=== PATIENT | female | born 1950 | race Caucasian/White ===

== ENCOUNTER 2018-11-11 09:43 | Inpatient (IN) ==
[2018-11-10 18:30] LABS: Basophils # (Auto) 0 K/mcL (0.0-0.3); Basophils % (Auto) 0.3 % (0.0-2.0); Eosinophils # (Auto) 0.1 K/mcL (0.0-0.7); Eosinophils % (Auto) 1.4 % (0.0-7.0); Granulocytes % (Auto) 78.7 % (38.0-78.0); Lymphocytes # (Auto) 1.2 K/mcL (1.5-4.8); Lymphocytes % (Auto) 13.4 % (15.5-49.0); Mean Cell Volume 90.6 fL (80.0-100.0); Mean Corpuscular HGB Conc 34.3 g/dL (31.0-36.0); Monocytes # (Auto) 0.5 K/mcL (0.1-0.9); Monocytes % (Auto) 6.2 % (1.0-12.0); Platelet Count 355 K/mcL (140-440); RBC 4.14 M/mcL (4.00-5.20); Red Cell Distribution Width 12.7 % (11.5-14.5)
[2018-11-10 19:21] LABS: Blood Urea Nitrogen 14 mg/dl (8-23)
[~2018-11-11 09:43] MED LIST: ceFAZolin 1 GM VIAL IV SCH
[2018-11-11] MEDS ORDERED: oxyCODONE/APAP 10/325MG TABLET PO ONE (10:26)
[2018-11-11] MEDS ORDERED: LIDOCAINE HCL/PF 100 MG/5 ML SYRINGE IV ONE (14:35)
[2018-11-11] MEDS ORDERED: ONDANSETRON 4 MG/2 ML VIAL IV ONE (14:35)
[2018-11-11] MEDS ORDERED: PROPOFOL 200 MG/20 ML VIAL IV ONE (14:35)
[2018-11-11] MEDS ORDERED: fentaNYL 100 MCG/2 ML VIAL IV ONE (14:35)
[2018-11-11] MEDS ORDERED: GLYCOPYRROLATE 0.2 MG/ML VIAL IV ONE (14:35)
[2018-11-11] MEDS ORDERED: MIDAZOLAM 5 MG/5 ML VIAL IV ONE (14:35)
[2018-11-11] MEDS ORDERED: KETOROLAC 30 MG/ML VIAL IV ONE (14:35)
[2018-11-11] MEDS ORDERED: KETAMINE 100 MG/ML ML IV ONE (14:35)
[2018-11-11] MEDS ORDERED: DEXAMETHASONE 10 MG/ML VIAL IV ONE (14:35)
[2018-11-11] MEDS ORDERED: BENZOCAINE/MENTHOL 1 LOZENGE PO PRN (15:22)
[2018-11-11] MEDS ORDERED: METHOCARBAMOL 1,000 MG/10 ML VIAL IV PRN (15:22)
[2018-11-11] MEDS ORDERED: ACETAMINOPHEN 900 MG/90 ML BOTTLE IV ONE (15:22)
[2018-11-11] MEDS ORDERED: LACTATED RINGERS 250 ML IV PRN (15:22)
[2018-11-11] MEDS ORDERED: IPRATROPIUM/ALBUTEROL 3 ML AMPUL.NEB NEB PRN (15:22)
[2018-11-11] MEDS ORDERED: MEPERIDINE 25 MG/ML SYRINGE IV PRN (15:22)
[2018-11-11] MEDS ORDERED: ONDANSETRON 4 MG/2 ML VIAL IV PRN (15:22)
[2018-11-11] MEDS ORDERED: NALOXONE HCL 0.4 MG/ML VIAL IV PRN (15:22)
[2018-11-11] MEDS ORDERED: FLUMAZENIL 0.1 MG/ML ML IV PRN (15:22)
[2018-11-11] MEDS ORDERED: HYDROmorphone 2 MG/ML VIAL IV PRN (15:22)
[2018-11-11] MEDS ORDERED: LACTATED RINGERS 1,000 ML IV SCH (15:30)
[2018-11-11] MEDS ORDERED: ONDANSETRON 4 MG ODT TABLET SL PRN (16:06)
--- NOTE | 2018-11-11 16:12 | Discharge Summary ---
Ortho Discharge Plan - General - Patient Instructions Diet: Regular Diet Activity: other (Non weightbearing left ankle adjust brace for comfort but keep on) Dressing Care: Cover dressing in shower (keep ankle dry) - Follow Up Plan Follow Up Appointments: Bro Castellanos PA-C [Physician [employer] Programmer] - 11/17/18 Disposition: Home, Self-Care Prognosis: Good Rehab Potential: Good I certify that the patient requires SNF services: No Overall status at discharge: patient is not back to baseline
[2018-11-11] MEDS: fentaNYL 100 MCG/2 ML VIAL IV PRN ×2 (17:02→17:06)
--- NOTE | 2018-11-11 17:50 | XRay Report ---
HISTORY: Postop repair fractured ankle FINDINGS: Preoperative films are not available for comparison. There is a transverse fracture of the medial malleolus and oblique fracture the distal metaphyseal region of the fibula. These are held in good alignment using metal plate and screws in the fibula and two screws placed through the medial malleolus into the shaft of the tibia. The ankle joint space is normal in width and alignment. Overlying soft tissues are swollen. IMPRESSION: good alignment following open reduction internal fixation of the fractured medial and lateral malleoli Interpreted and Authenticated by: Sandeep Lopez 11/11/18
[2018-11-11] MEDS: oxyCODONE/APAP 5/325MG TABLET PO PRN ×2 (18:16→22:27)
--- NOTE | 2018-11-11 20:58 | Internal Med History&Physical ---
Medical - H&P: HPI Patient information: Note initiated : 11/11/18 at 8:52 pm Service Date, if different from initiated Date: [] Patient: Pari Reyes a 68 y/o F admitted on for Open Reduction Internal Fixation Left Trimalleolar. Chief Complaint: [] History of present illness: Ms. Reyes is a 68 year old F Who is now status post ORIF of the left ankle and was noted to be hypoxic postoperatively. She fell down some steps on [place] after having a few drinks of alcohol. She had immediate pain to the right ankle. When in the ER found to have an ankle fracture. She was sent home to follow-up with Dr. Britton. She followed up in his office and was set up for elective surgical repair. Presented to the hospital this morning had surgery this afternoon. She was not on any oxygen before hand had no chest pain or shortness of breath or any symptoms. Postoperatively she required oxygen 6 L initially and titrated down to 2-3. She says she has never been on oxygen in the past has no cardiac or pulmonary conditions. Denies any fevers chills. No coughing no recent sicknesses. She is not tachycardic however she is on beta-blockers. ABG with PaO2 of 58 and within normal limits CO2. Intraoperatively she received 2 units of IV fluids. She typically does not have any lower extremity edema. She has been sedentary since the fracture a few days ago on the . Her blood pressure is stable. Review of Systems: Pertinent positives as above . denies headache/fever/chills/nausea/vomiting/ chest or abdominal pain/cough/dyspnea/diarrhea. Remaining 10 point review of system review negative Medical - H&P: PMH Medical history: Past medical history: Hypertension hyperlipidemia hypothyroidism depression Past surgical history: Left shoulder arthroscopy T&A hysterectomy breast and face surgery Family history: Unknown mother's history father had Hodgkin's lymphoma and myocardial infarction Social history patient does not smoke she drinks 20 ounces of wine nightly lives at home with Medical - H&P: Meds Home Medications Medication Instructions Recorded Confirmed Type Atenolol [Tenormin] 25 mg PO DAILY 11/10/18 11/11/18 History Escitalopram [Lexapro] 10 mg PO DAILY 11/10/18 11/11/18 History Levothyroxine [Synthroid] 75 mcg PO DAILY 11/10/18 11/11/18 History Losartan/Hydrochlorothiazide 1 each PO DAILY 11/10/18 11/11/18 History [Losartan-Hctz 100-12.5 mg Tab] Pramipexole Di-HCl [Pramipexole 0.5 mg PO HS 11/10/18 11/11/18 History Dihydrochloride] Pravastatin [Pravachol] 20 mg PO HS 11/10/18 11/11/18 History Allergies Allergy/AdvReac Type Severity Reaction Status Date / Time codeine AdvReac Mild Vomiting Verified 11/11/18 09:48 Medical - H&P: Exam - Constitutional Vitals: Temp Pulse Resp BP Pulse Ox 98.0 F 70 12 138/80 92 11/11/18 20:37 11/11/18 20:37 11/11/18 20:37 11/11/18 20:37 11/11/18 20:37 Exam: General: Alert, Awake, No acute Distress Eyes/N/T: EOMI, PEERL, MMM Head/Neck: neck supple, normocephalic atraumatic CV: RRR, No murmurs, normal s1/s2 Pulm: Coarse bilaterally upper and lower, and by basilar rhonchi. Abd: soft, nontender, +BS x4 Ext: no clubbing/cyanosis/edema Neuro: Alert, no focal deficits, moves all extremities, CN 2-12 grossly intact, left ankle and boot Skin: warm/dry Medical - H&P: Reslt - Labs CBC & Chem 7: 11/10/18 16:26 11/10/18 16:26 - Impressions ABG with a PO2 of 58 EKG unremarkable and sinus. Chest x-ray with appears to be some fluid in the horizontal fissure and some haziness in the right upper lobe. Pulmonary vascular congestion Medical - H&P: A/P - Narrative A/P Narrative: A: *Hypoxia postop: -CTA with PE KELLY/RLL & multifocal alveolar infiltrates *Hyponatremia: *Hypertension *Hypothyroidism *Depression: * P: -lovenox bid -O2 supp, wean as able -CIWA -IS -tele -f/u sodium -check PCT
[2018-11-11] MEDS ORDERED: PRAMIPEXOLE 0.25 MG TABLET PO SCH (21:00)
[2018-11-11] MEDS ORDERED: LORazepam 2 MG/ML VIAL IV PRN (21:11)
[2018-11-11] MEDS ORDERED: 0.9 % SODIUM CHLORIDE 10 ML SYRINGE IV SCH ×2 (22:00)
[2018-11-11] MEDS: ENOXAPARIN 60 MG/0.6 ML SYRINGE SQ SCH ×2 (22:49→23:32)
[2018-11-11] MEDS ORDERED: ENOXAPARIN 60 MG/0.6 ML SYRINGE ONE (23:22)
[2018-11-11 23:44] LABS: C-Reactive Protein 5.2 mg/dl (0.0-0.8)
[2018-11-12] MEDS ORDERED: HYDROmorphone 2 MG/ML VIAL IV PRN ×2 (00:10→11:33)
[2018-11-12] MEDS ORDERED: LORazepam 2 MG/ML VIAL IV PRN ×3 (00:10→11:33)
[2018-11-12] MEDS ORDERED: oxyCODONE/APAP 5/325MG TABLET PO PRN (00:10)
[2018-11-12] MEDS ORDERED: ONDANSETRON 4 MG ODT TABLET SL PRN ×2 (00:10→11:33)
[2018-11-12] MEDS ORDERED: HYDROmorphone 2 MG/ML VIAL ONE (03:53)
[2018-11-12] MEDS ORDERED: oxyCODONE/APAP 5/325MG TABLET PO ONE (03:54)
[2018-11-12 05:48] LABS: Mean Cell Volume 90.3 fL (80.0-100.0); Mean Corpuscular HGB Conc 34.5 g/dL (31.0-36.0); Platelet Count 302 K/mcL (140-440); RBC 3.63 M/mcL (4.00-5.20); Red Cell Distribution Width 12.7 % (11.5-14.5)
[2018-11-12] MEDS ORDERED: 0.9 % SODIUM CHLORIDE 10 ML SYRINGE IV SCH ×2 (06:00)
[2018-11-12 06:04] LABS: ALT/SGPT 13 U/l (0-40); Albumin 3.2 gm/dL (3.2-5.2); Albumin/Globulin Ratio 1.3 (1.0-2.3); Alkaline Phosphatase 62 U/L (39-117); Bilirubin,Direct < 0.2 mg/dL (0.0-0.3); Blood Urea Nitrogen 10 mg/dl (8-23); Gamma Glutamyl Transpeptidase 30 U/L (5-36); Uric Acid 1.9 mg/dL (2.5-8.0)
[2018-11-12] MEDS ORDERED: FUROSEMIDE 40 MG/4 ML VIAL IV ONE (06:19)
--- NOTE | 2018-11-12 06:23 | Internal Med Progress Note ---
Medical - PN: Subj Patient information: Note initiated : 11/12/18 at 6:14 am Service Date, if different from initiated Date: [] Patient: Pari Reyes a 68 y/o F admitted on 11/11/18 for Open Reduction Internal Fixation Left Trimalleolar. Chief Complaint: [] Interval history: Ms. Reyes is a 68 year old F Who is now status post ORIF of the left ankle and was noted to be hypoxic postoperatively. She fell down some steps on [place] after having a few drinks of alcohol. She had immediate pain to the right ankle. When in the ER found to have an ankle fracture. She was sent home to follow-up with Dr. Britton. She followed up in his office and was set up for elective surgical repair. Presented to the hospital this morning had surgery this afternoon. She was not on any oxygen before hand had no chest pain or shortness of breath or any symptoms. Postoperatively she required oxygen 6 L initially and titrated down to 2-3. She says she has never been on oxygen in the past has no cardiac or pulmonary conditions. Denies any fevers chills. No coughing no recent sicknesses. She is not tachycardic however she is on beta-blockers. ABG with PaO2 of 58 and within normal limits CO2. Intraoperatively she received 2 units of IV fluids. She typically does not have any lower extremity edema. She has been sedentary since the fracture a few days ago on the . Her blood pressure is stable. 1/4 Doing fine this morning. She was just taken off oxygen given some Lasix earlier in put out 950 cc of fluid. Eyes any cough or shortness of breath. vital signs stable Review of Systems: denies headache/fever/chills/nausea/vomiting/chest or abdominal pain/cough/dyspnea/diarrhea. Otherwise see above.. - Constitutional Vitals: Vital Signs Temp Pulse Resp BP Pulse Ox 97.9 F 58 L 13 106/64 93 11/11/18 23:36 11/12/18 00:38 11/12/18 02:01 11/12/18 02:01 11/12/18 02:01 Period Temp Pulse Resp BP Sys/Handy Pulse Ox Last 24 Hr 97.5 F-99.2 F 58-99 08-27 106-176/64-98 90-96 Intake and Output 11/11/18 11/12/18 11/12/18 21:59 05:59 13:59 Intake Total 1380 / 1380 Output Total Balance 1360 / 1360 Weight 62.142 kg Intake & Output: Intake & Output 11/11/18 11/12/18 11/12/18 21:59 05:59 13:59 Intake Total 1380 / 1380 Output Total Balance 1360 / 1360 Weight 62.142 kg Intake: IV 90 / 90 Oral 40 / 40 IV - Manual Only 1250 / 1250 Output: Estimated Blood Loss Other: Meal wheat toast Feeding Ability Independent Exam: General: Alert, Awake, No acute Distress Eyes/N/T: EOMI, Head/Neck: neck supple, CV: RRR, No murmurs, Pulm: clear this morning, laterally, no wheezing/rhonchi Abd: soft, nontender, +BS x4 Ext: no clubbing/cyanosis/edema Neuro: Alert, no focal deficits, moves all extremities, Skin: warm/dry Medical - PN: Obj Da - Labs CBC & Chem 7: 11/10/18 16:26 11/12/18 03:50 Labs: Abnormal Lab Results 11/12/18 11/12/18 11/11/18 03:50 03:50 22:30 WBC 11.7 H RBC 3.63 L Hgb 11.3 L Hct 32.8 L MPV 7.0 L Gran % Lymph % (Auto) Lymph # (Auto) Sodium 127 L Chloride 91 L Glucose 134 H Uric Acid 1.9 L C-Reactive Protein 5.2 H NT-Pro-B Natriuret Pep Total Protein 5.7 L 11/11/18 11/10/18 11/10/18 20:58 16:26 16:26 WBC RBC Hgb Hct MPV Gran % 78.7 H Lymph % (Auto) 13.4 L Lymph # (Auto) 1.2 L Sodium 128 L Chloride 90 L Glucose 163 H Uric Acid C-Reactive Protein NT-Pro-B Natriuret Pep 335.4 H Total Protein Meds: Medications Atenolol (Tenormin) 25 mg PO DAILY [facility] Enoxaparin Sodium (Lovenox) 60 mg SQ BID [facility] Escitalopram Oxalate (Lexapro) 10 mg PO DAILY [facility] Hydrochlorothiazide (Oretic) 12.5 mg PO DAILY [facility] Hydromorphone HCl (Dilaudid) 0.5 mg IV Q15MIN PRN PRN Reason: PAIN LEVEL > 6 Levothyroxine Sodium (Synthroid) 75 mcg PO ACB [facility] Lorazepam (Ativan) 0 mg IV Q4HP PRN; Protocol PRN Reason: Alcohol Withdrawal Losartan Potassium (Cozaar) 100 mg PO DAILY [facility] Morphine Sulfate (Morphine) 0 mg IV Q1HP PRN PRN Reason: PAIN LEVEL > 6 Ondansetron HCl (Zofran Odt) 4 mg SL Q6HP PRN PRN Reason: Nausea And Vomiting Oxycodone/Acetaminophen (Percocet 5-325 Mg) 0 tab PO Q4HP PRN PRN Reason: PAIN LEVEL 3-6 Pramipexole Dihydrochloride (Mirapex) 0.5 mg PO HS [facility] Sodium Chloride (Saline Flush) 10 ml IV Q8 [facility] Last Admin: 11/12/18 05:32 Dose: 10 ml Documented by: Sodium Chloride (Saline Flush) 10 ml IV Q8 [facility] Last Admin: 11/12/18 05:33 Dose: 10 ml Documented by: Medical - PN: A/P - Time Spent With Patient Total time spent is greater than 50% in coordination of care (as documented) at patient's floor/unit and/or counseling patient: - Narrative A/P Narrative: A: *b/l PE: CTA with PE (no heart strain noted on CT), BP stable -CT also multifocal alveolar infiltrates, cxr with fluid in horizontal fissure -on 2L NC, from 6L in PACU *acute hypoxic resp failure: 2/2 above *CT chest findings of multifocal alveolar infiltrates -afebrile, no cough, PCT low -suspect fluid overload intraop *Hyponatremia: *Hypertension *Hypothyroidism: tsh wnl *Depression: * P: -lovenox bid -O2 supp, wean as able -urine studies, lasix, f/u CXR in AM -f/u sodium -echo -CIWA -IS Medical - PN: Qual - VTE Deep Vein Thrombosis/Pulmonary Embolism Present on Admission: Yes
[2018-11-12] MEDS ORDERED: LEVOTHYROXINE 75 MCG TABLET PO SCH ×2 (07:30)
[2018-11-12 08:01] LABS: Osmolality,Urine 357 mOsm/kg (80-1000)
--- NOTE | 2018-11-12 08:24 | XRay Report ---
HISTORY: Hypoxia following orthopedic surgery FINDINGS: A moderate-sized alveolar infiltrate is present in the right upper lobe. The remainder of the lung sweet are clear. The heart size is normal and there is no pulmonary vascular congestion or pleural effusion. IMPRESSION: Right upper lobe infiltrate which could be aspiration or pneumonia Interpreted and Authenticated by: Sandeep Lopez 11/12/18
--- NOTE | 2018-11-12 08:32 | Cat Scan Report ---
CLINICAL INFORMATION: Hypoxia and right-sided pulmonary infiltrate after ankle surgery COMPARISON: Chest x-ray on 11/11/18 TECHNIQUE: Axial images obtained through the chest. intravenous contrast administration was administered, and scanning was performed during pulmonary arterial phase. Sagittally and coronally reformatted images were obtained. MIP reformatted images. Radiation exposure was limited using dose reduction technology. FINDINGS: There are several scattered pulmonary emboli in both lungs. There is involvement in the left upper lobe and superior segment of lingula and right lower lobe. The central pulmonary arteries are normal. There is no dilatation of the right ventricle. The heart is normal in size and contour. The aorta is normal in caliber. There is a moderately large alveolar infiltrate posteriorly in the right upper lobe. There are no pulmonary emboli in this segment. There are also moderate size patchy infiltrates in the superior segments of both lower lobes. The involvement in the lower lobes is new since the preceding chest x-ray. There are no pulmonary emboli in the superior segments of the lower lobes. No mass or pleural effusion are present. There are no enlarged lymph nodes. Small hiatus hernia is present. Patient has bilateral breast implants.1 IMPRESSION: Bilateral pulmonary emboli Bilateral alveolar infiltrates with the greatest involvement in the right upper lobe and there is moderate involvement in the superior segments of both lower lobes. The infiltrates do not correspond with the pulmonary emboli. This may be concurrent aspiration or development of ARDS. Interpreted and Authenticated by: Sandeep Lopez 11/12/18
[2018-11-12 08:36] LABS: Band Neutrophils % 6 % (0-10); Lymphocytes % 13 % (15-49); Monocytes % (Manual) 3 % (1-12); Platelet Estimate NORMAL (NORMAL); RBC Morphology NORMAL (NORMAL); Segmented Neutrophils % 78 % (38-78)
--- NOTE | 2018-11-12 08:48 | Orthopedic Progress Note ---
Subjective Patient information: Note initiated : 11/12/18 at 8:45 am Service Date, if different from initiated Date: [] Patient: Pari Reyes 68 y/o F admitted on 11/11/18 for Open Reduction Internal Fixation Left Trimalleolar. Chief Complaint: [] Principal diagnosis: ankle fracture Interval history: had pulmonary embolism postop Pertinent ROS: no SOB or distress this morning Objective Vital signs: Vital Signs Temp Pulse Pulse Resp BP BP BP 11/12/18 08:34 66 17 11/12/18 08:14 59 L 16 121/74 11/12/18 08:01 57 L 19 107/73 11/12/18 07:01 59 L 17 141/72 11/12/18 06:01 12 109/79 11/12/18 06:00 11/12/18 05:01 16 121/61 11/12/18 04:01 98.2 F 16 131/64 11/12/18 03:01 16 117/63 11/12/18 02:01 13 106/64 11/12/18 01:01 13 112/68 11/12/18 00:38 58 L 17 113/73 11/11/18 23:53 17 113/73 11/11/18 23:52 68 14 11/11/18 23:36 97.9 F 65 12 126/77 11/11/18 21:11 11/11/18 20:37 98.0 F 70 12 138/80 11/11/18 20:06 11/11/18 19:38 98.5 F 75 16 121/64 11/11/18 18:24 98.7 F 79 14 128/66 11/11/18 17:24 98.0 F 89 14 161/88 11/11/18 16:54 97.6 F 87 12 154/74 11/11/18 16:50 97.9 F 78 14 147/94 11/11/18 16:40 85 14 147/81 11/11/18 16:25 88 15 156/66 11/11/18 16:10 91 H 19 169/93 11/11/18 16:05 99 H 18 176/87 11/11/18 16:00 75 13 155/98 11/11/18 15:55 97.5 F 72 10 L 111/69 11/11/18 09:49 99.2 F H 71 15 124/68 Pulse Ox 11/12/18 08:34 91 11/12/18 08:14 97 11/12/18 08:01 90 11/12/18 07:01 99 11/12/18 06:01 94 11/12/18 06:00 94 11/12/18 05:01 95 11/12/18 04:01 98 11/12/18 03:01 97 11/12/18 02:01 93 11/12/18 01:01 90 11/12/18 00:38 91 11/11/18 23:53 91 11/11/18 23:52 92 11/11/18 23:36 95 11/11/18 21:11 95 11/11/18 20:37 92 11/11/18 20:06 94 11/11/18 19:38 93 11/11/18 18:24 94 11/11/18 17:24 96 11/11/18 16:54 95 11/11/18 16:50 94 11/11/18 16:40 92 11/11/18 16:25 93 11/11/18 16:10 94 11/11/18 16:05 90 11/11/18 16:00 93 11/11/18 15:55 96 11/11/18 09:49 96 Intake and Output 11/11/18 11/12/18 11/12/18 21:59 05:59 13:59 Intake Total 1380 / 1740 360 / 1740 600 / 600 Output Total 20 870 850 / 870 950 / 950 Balance 1360 / 870 -490 / 870 -350 / -350 Intake: IV 90 / 90 Oral 40 / 400 360 / 400 600 / 600 IV - Manual Only 1250 / 1250 Output: Void Amount 850 / 850 950 / 950 Estimated Blood Loss 20 / 20 Other: Meal wheat toast Breakfast Percent of Meal Consumed 100% Feeding Ability Independent Urine Color Bright Yellow Pale Weight 137 lb Intake & Output: Intake & Output 11/11/18 11/12/18 11/12/18 21:59 05:59 13:59 Intake Total 1380 / 1740 360 / 1740 600 / 600 Output Total 20 870 850 / 870 950 / 950 Balance 1360 / 870 -490 / 870 -350 / -350 Weight 137 lb Intake: IV 90 / 90 Oral 40 / 400 360 / 400 600 / 600 IV - Manual Only 1250 / 1250 Output: Void Amount 850 / 850 950 / 950 Estimated Blood Loss Other: Meal wheat toast Breakfast Percent of Meal Consumed 100% Feeding Ability Independent Urine Color Bright Yellow Pale Dressing: Yes clean, Yes dry Neurological exam IM: Yes alert, Yes altered, Yes CN II-XII intact, Yes neurovascular intact - Labs CBC & BMP: 11/10/18 16:26 11/12/18 03:50 Labs: 11/12/18 11/10/18 03:50 16:26 Hgb 11.3 L 12.9 Hct 32.8 L 37.5 Assessment and Plan (1) Pulmonary embolism in hospital care for now secondary to PE asymptomatic this am rx per hospitalists Status: Acute
[2018-11-12] MEDS ORDERED: LOSARTAN 50 MG TABLET PO SCH ×2 (09:00)
[2018-11-12] MEDS ORDERED: ATENOLOL 50 MG TABLET PO SCH ×2 (09:00)
[2018-11-12] MEDS ORDERED: ESCITALOPRAM 10 MG TABLET PO SCH ×2 (09:00)
[2018-11-12] MEDS ORDERED: ENOXAPARIN 60 MG/0.6 ML SYRINGE SQ SCH (09:00)
[2018-11-12] MEDS ORDERED: HYDROCHLOROTHIAZIDE 12.5 MG CAPSULE PO SCH ×2 (09:00)
--- NOTE | 2018-11-12 12:38 | Operative Note ---
DATE OF OPERATION: 11/11/2018 PREOPERATIVE DIAGNOSIS: Left trimalleolar ankle fracture. POSTOPERATIVE DIAGNOSIS: Left trimalleolar ankle fracture. OPERATION: Open reduction and internal fixation of left trimalleolar ankle fracture. SURGEON: Daniele Britton M.D. GERIATRIC NURSE: Bro Castellanos PA-C. ANESTHESIA: General. SUMMARY OF PROCEDURE: General anesthesia was attained. The left leg was prepped and draped. A thigh-level tourniquet was put up. A lateral incision was made over the fibula. This was taken down to the fracture site. There was clot in the fracture and this was irrigated. The fracture was reduced. I then did internal fixation using a low-profile locking plate getting three screws distally and four proximally. I then did stress testing clinically and under image, and there was no evidence of a syndesmosis disruption. Lateral x-rays at this point showed that the posterior malleolar fracture was satisfactorily reduced and was less than 25% of the posterior tibia. The wound was irrigated. The subcutaneous tissue was closed with 2-0 Monocryl, and the skin was closed with violet. The median incision was next addressed. A medial longitudinal incision was made. It was taken down to the medial malleolus fracture. This was noted to have a little bit of comminution laterally. The fracture site was irrigated. The fracture was reduced. The reduction was held with a dental pick. Two 4.0 cannulated screws were next placed under image control, reducing and fixing the medial malleolar fracture. The mortise was restored. The wound was irrigated. The subcutaneous tissue was closed with interrupted buried 2-0 Monocryl, and the skin was closed with mattress sutures of 3-0 nylon. An ankle block was placed with 30 mL of Marcaine for postoperative analgesia. A sterile compressive dressing was applied, followed by an Aircast walker boot. The sponge and needle count was correct. The patient tolerated the procedure well and was taken to the recovery room in stable condition. TUANF:erin Job ID: [id number] Doc ID: [id number] Daniele Britton MD
[2018-11-12] MEDS: oxyCODONE/APAP 5/325MG TABLET PO PRN ×4 (13:50→22:13)
[2018-11-12] MEDS: 0.9 % SODIUM CHLORIDE 10 ML SYRINGE IV SCH ×4 (15:44→22:24)
[2018-11-12] MEDS ORDERED: PRAMIPEXOLE 0.25 MG TABLET PO SCH (21:00)
[2018-11-12] MEDS: PRAMIPEXOLE 0.25 MG TABLET PO SCH (22:11)
[2018-11-12] MEDS: ENOXAPARIN 60 MG/0.6 ML SYRINGE SQ SCH (22:15)
[2018-11-13] MEDS: oxyCODONE/APAP 5/325MG TABLET PO PRN ×5 (04:34→21:51)
[2018-11-13] MEDS: 0.9 % SODIUM CHLORIDE 10 ML SYRINGE IV SCH ×6 (06:00→22:09)
[2018-11-13 06:13] LABS: ALT/SGPT 13 U/l (0-40); Albumin 2.9 gm/dL (3.2-5.2); Albumin/Globulin Ratio 1.1 (1.0-2.3); Alkaline Phosphatase 57 U/L (39-117); Bilirubin,Direct < 0.2 mg/dL (0.0-0.3); Blood Urea Nitrogen 13 mg/dl (8-23); Gamma Glutamyl Transpeptidase 26 U/L (5-36); Uric Acid 2.3 mg/dL (2.5-8.0)
[2018-11-13 06:18] LABS: Mean Cell Volume 90.3 fL (80.0-100.0); Mean Corpuscular HGB Conc 34.2 g/dL (31.0-36.0); Platelet Count 327 K/mcL (140-440); RBC 3.31 M/mcL (4.00-5.20); Red Cell Distribution Width 12.8 % (11.5-14.5)
[2018-11-13] MEDS: LEVOTHYROXINE 75 MCG TABLET PO SCH (06:23)
[2018-11-13 07:25] LABS: Lymphocytes % 35 % (15-49); Monocytes % (Manual) 3 % (1-12); Platelet Estimate NORMAL (NORMAL); RBC Morphology NORMAL (NORMAL); Segmented Neutrophils % 62 % (38-78)
--- NOTE | 2018-11-13 08:23 | XRay Report ---
HISTORY: Follow-up right upper lobe pneumonia FINDINGS: The right upper lobe pneumonia seen on 11/11/18 has nearly but not completely resolved. There is no underlying mass or adenopathy. The remainder of the lung sweet are clear. The heart size is normal. IMPRESSION: Near complete resolution of the right upper lobe pneumonia Interpreted and Authenticated by: Sandeep Lopez 11/13/18
[2018-11-13] MEDS: ESCITALOPRAM 10 MG TABLET PO SCH (08:43)
[2018-11-13] MEDS: HYDROCHLOROTHIAZIDE 12.5 MG CAPSULE PO SCH (08:43)
[2018-11-13] MEDS: ENOXAPARIN 60 MG/0.6 ML SYRINGE SQ SCH (08:43)
[2018-11-13] MEDS: ATENOLOL 50 MG TABLET PO SCH (08:50)
[2018-11-13] MEDS: LOSARTAN 50 MG TABLET PO SCH (08:50)
--- NOTE | 2018-11-13 08:53 | Orthopedic Progress Note ---
Subjective Patient information: Note initiated : 11/13/18 at 8:51 am Service Date, if different from initiated Date: [] Patient: Pari Reyes 68 y/o F admitted on 11/11/18 for Open Reduction Internal Fixation Left Trimalleolar. Chief Complaint: [] Principal diagnosis: ankle fracture Interval history: doing better Objective Vital signs: Vital Signs Temp Pulse Pulse Resp BP BP BP 11/13/18 07:38 98.2 F 52 L 14 102/65 11/13/18 04:00 97.5 F 54 L 16 116/69 11/12/18 23:30 97.6 F 52 L 12 83/50 11/12/18 18:59 98.4 F 54 L 16 93/56 11/12/18 16:00 98.1 F 78 24 H 114/66 11/12/18 12:07 98.6 F 55 L 129/75 11/12/18 09:53 25 H 11/12/18 09:01 80 14 107/66 Pulse Ox 11/13/18 07:38 95 11/13/18 04:00 95 11/12/18 23:30 93 11/12/18 18:59 92 11/12/18 16:00 93 11/12/18 12:07 96 11/12/18 09:53 11/12/18 09:01 90 Intake and Output 11/12/18 11/13/18 11/13/18 21:59 05:59 13:59 Intake Total 600 / 2100 400 / 2100 Output Total 350 / 2300 Balance 250 / -200 400 / -200 Intake: Oral 600 / 2100 400 / 2100 Output: Void Amount 350 / 2300 Other: Meal Dinner Percent of Meal Consumed 50% Feeding Ability Independent Urine Appearance Clear Urine Color Bright Yellow Weight 149 lb 8 oz Intake & Output: Intake & Output 11/12/18 11/13/18 11/13/18 21:59 05:59 13:59 Intake Total 600 / 2100 400 / 2100 Output Total 350 / 2300 Balance 250 / -200 400 / -200 Weight 149 lb 8 oz Intake: Oral 600 / 2100 400 / 2100 Output: Void Amount 350 / 2300 Other: Meal Dinner Percent of Meal Consumed 50% Feeding Ability Independent Urine Appearance Clear Urine Color Bright Yellow Incision: Yes healing Incision clean and dry: Yes Dressing: Yes clean, Yes dry, Yes intact Weight bearing status: non Neurological exam IM: Yes abnormal gait, Yes alert, Yes oriented X3 Extremities exam IM: No calf tenderness, Yes Foot pink and warm, Yes neurovascular intact - Labs CBC & BMP: 11/13/18 04:11 11/13/18 04:11 Labs: 11/13/18 11/12/18 11/10/18 04:11 03:50 16:26 Hgb 10.2 L 11.3 L 12.9 Hct 29.9 L 32.8 L 37.5 Assessment and Plan (1) Ankle fracture s/p ankle ORIF pulmonary embolism nwb medical management Status: Acute
--- NOTE | 2018-11-13 10:11 | Internal Med Progress Note ---
Medical - PN: Subj Patient information: Note initiated : 11/13/18 at 10:08 am Service Date, if different from initiated Date: [] Patient: Pari Reyes a 68 y/o F admitted on 11/11/18 for Open Reduction Internal Fixation Left Trimalleolar. Chief Complaint: [] Interval history: Ms. Reyes is a 68 year old F Who is now status post ORIF of the left ankle and was noted to be hypoxic postoperatively. She fell down some steps on [place] after having a few drinks of alcohol. She had immediate pain to the right ankle. When in the ER found to have an ankle fracture. She was sent home to follow-up with Dr. Britton. She followed up in his office and was set up for elective surgical repair. Presented to the hospital this morning had surgery this afternoon. She was not on any oxygen before hand had no chest pain or shortness of breath or any symptoms. Postoperatively she required oxygen 6 L initially and titrated down to 2-3. She says she has never been on oxygen in the past has no cardiac or pulmonary conditions. Denies any fevers chills. No coughing no recent sicknesses. She is not tachycardic however she is on beta-blockers. ABG with PaO2 of 58 and within normal limits CO2. Intraoperatively she received 2 units of IV fluids. She typically does not have any lower extremity edema. She has been sedentary since the fracture a few days ago on the . Her blood pressure is stable. 1/4 Doing fine this morning. She was just taken off oxygen given some Lasix earlier in put out 950 cc of fluid. Eyes any cough or shortness of breath. vital signs stable 1/5-patient doing well. No overnight events. Feeling a lot better. Ambulating with assistance. Discussed risk and benefits of oral anticoagulation including Coumadin and newer generation oral anticoagulant. Patient understands the risk and would like to initiate newer generation anticoagulant. Switch to Eliquis today. - Constitutional Vitals: Vital Signs Temp Pulse Resp BP Pulse Ox 98.2 F 52 L 14 102/65 95 11/13/18 07:38 11/13/18 07:38 11/13/18 07:38 11/13/18 07:38 11/13/18 07:38 Period Temp Pulse Resp BP Sys/Handy Pulse Ox Last 24 Hr 97.5 F-98.6 F 52-78 12-24 83-129/50-75 92-96 Intake and Output 11/12/18 11/13/18 11/13/18 21:59 05:59 13:59 Intake Total 600 / 2100 400 / 2100 Output Total 350 / 2300 Balance 250 / -200 400 / -200 Weight 149 lb 8 oz Intake & Output: Intake & Output 11/12/18 11/13/18 11/13/18 21:59 05:59 13:59 Intake Total 600 / 2100 400 / 2100 Output Total 350 / 2300 Balance 250 / -200 400 / -200 Weight 149 lb 8 oz Intake: Oral 600 / 2100 400 / 2100 Output: Void Amount 350 / 2300 Other: Meal Dinner Percent of Meal Consumed 50% Feeding Ability Independent Urine Appearance Clear Urine Color Bright Yellow General appearance: no acute distress Exam: Alert oriented No labored breathing Nondistended abdomen No lymphedema Medical - PN: Obj Da - Labs CBC & Chem 7: 11/13/18 04:11 11/13/18 04:11 Labs: Abnormal Lab Results 11/13/18 11/13/18 11/12/18 04:11 04:11 03:50 WBC RBC 3.31 L Hgb 10.2 L Hct 29.9 L MPV 7.3 L Gran % Lymph % (Auto) Lymph # (Auto) Lymphocytes % Sodium 132 L Chloride 92 L Glucose Osmolality 268 L Uric Acid 2.3 L C-Reactive Protein NT-Pro-B Natriuret Pep Total Protein 5.6 L Albumin 2.9 L 11/12/18 11/12/18 11/11/18 03:50 03:50 22:30 WBC 11.7 H RBC 3.63 L Hgb 11.3 L Hct 32.8 L MPV 7.0 L Gran % Lymph % (Auto) Lymph # (Auto) Lymphocytes % 13 L Sodium 127 L Chloride 91 L Glucose 134 H Osmolality Uric Acid 1.9 L C-Reactive Protein 5.2 H NT-Pro-B Natriuret Pep Total Protein 5.7 L Albumin 11/11/18 11/10/18 11/10/18 20:58 16:26 16:26 WBC RBC Hgb Hct MPV Gran % 78.7 H Lymph % (Auto) 13.4 L Lymph # (Auto) 1.2 L Lymphocytes % Sodium 128 L Chloride 90 L Glucose 163 H Osmolality Uric Acid C-Reactive Protein NT-Pro-B Natriuret Pep 335.4 H Total Protein Albumin Meds: Medications Apixaban (Eliquis) 5 mg PO BID [facility] Atenolol (Tenormin) 25 mg PO DAILY [facility] Last Admin: 11/13/18 08:50 Dose: Not Given Documented by: Escitalopram Oxalate (Lexapro) 10 mg PO DAILY [facility] Last Admin: 11/13/18 08:43 Dose: 10 mg Documented by: Hydrochlorothiazide (Oretic) 12.5 mg PO DAILY [facility] Last Admin: 11/13/18 08:43 Dose: 12.5 mg Documented by: Hydromorphone HCl (Dilaudid) 0.5 mg IV Q15MIN PRN PRN Reason: PAIN LEVEL > 6 Levothyroxine Sodium (Synthroid) 75 mcg PO ACB [facility] Last Admin: 11/13/18 06:23 Dose: 75 mcg Documented by: Lorazepam (Ativan) 0 mg IV Q4HP PRN PRN Reason: ANXIETY/SEDATION Losartan Potassium (Cozaar) 100 mg PO DAILY [facility] Last Admin: 11/13/18 08:50 Dose: Not Given Documented by: Morphine Sulfate (Morphine) 0 mg IV Q1HP PRN PRN Reason: PAIN LEVEL > 6 Ondansetron HCl (Zofran Odt) 4 mg SL Q6HP PRN PRN Reason: Nausea And Vomiting Oxycodone/Acetaminophen (Percocet 5-325 Mg) 0 tab PO Q4HP PRN PRN Reason: PAIN LEVEL 3-6 Last Admin: 11/13/18 08:49 Dose: 2 tab Documented by: Pramipexole Dihydrochloride (Mirapex) 0.5 mg PO HS [facility] Last Admin: 11/12/18 22:11 Dose: 0.5 mg Documented by: Sodium Chloride (Saline Flush) 10 ml IV Q8 [facility] Last Admin: 11/13/18 06:00 Dose: 10 ml Documented by: Sodium Chloride (Saline Flush) 10 ml IV Q8 [facility] Last Admin: 11/13/18 06:00 Dose: 10 ml Documented by: Medical - PN: A/P - Time Spent With Patient Total time spent is greater than 50% in coordination of care (as documented) at patient's floor/unit and/or counseling patient: 25 - 35 minutes (1) Pulmonary embolism Status: Acute Assessment and plan: * Bilateral PE-start Eliquis, DC enoxaparin * Hypoxic respiratory failure secondary to above clinically improving * History of hypertension continue thiazide/losartan/atenolol * Hypothyroidism on thyroxine * Anxiety disorder on escitalopram * DNR Plan * Start Eliquis * Pre-existing medical condition management as above * Discharge planning as per orthopedics Current Visit: Yes Medical - PN: Qual - VTE Deep Vein Thrombosis/Pulmonary Embolism Present on Admission: Yes
[2018-11-13] MEDS ORDERED: BISACODYL 10 MG SUPP.RECT PR PRN (14:12)
[2018-11-13] MEDS ORDERED: MAGNESIUM HYDROXIDE 30 ML ORAL.SUSP PO PRN (14:12)
[2018-11-13] MEDS ORDERED: FLEETS ADULT ENEMA PR PRN (14:12)
[2018-11-13] MEDS: PRAMIPEXOLE 0.25 MG TABLET PO SCH (20:34)
[2018-11-13] MEDS: DOCUSATE SODIUM 100 MG CAPSULE PO SCH (20:34)
[2018-11-13] MEDS: APIXABAN 5 MG TABLET PO SCH (20:35)
[2018-11-14 05:24] LABS: Mean Cell Volume 90.4 fL (80.0-100.0); Mean Corpuscular HGB Conc 34.2 g/dL (31.0-36.0); Platelet Count 371 K/mcL (140-440); Red Cell Distribution Width 12.6 % (11.5-14.5)
[2018-11-14 05:48] LABS: ALT/SGPT 16 U/l (0-40); Albumin 3.1 gm/dL (3.2-5.2); Albumin/Globulin Ratio 1.2 (1.0-2.3); Alkaline Phosphatase 64 U/L (39-117); Bilirubin,Direct < 0.2 mg/dL (0.0-0.3); Blood Urea Nitrogen 11 mg/dl (8-23); Gamma Glutamyl Transpeptidase 37 U/L (5-36); Uric Acid 3.4 mg/dL (2.5-8.0)
--- NOTE | 2018-11-14 06:28 | Internal Med Progress Note ---
Medical - PN: Subj Patient information: Note initiated : 11/14/18 at 6:26 am Service Date, if different from initiated Date: [] Patient: Pari Reyes a 68 y/o F admitted on 11/11/18 for Open Reduction Internal Fixation Left Trimalleolar. Chief Complaint: [] Interval history: Ms. Reyes is a 68 year old F Who is now status post ORIF of the left ankle and was noted to be hypoxic postoperatively. She fell down some steps on [place] after having a few drinks of alcohol. She had immediate pain to the right ankle. When in the ER found to have an ankle fracture. She was sent home to follow-up with Dr. Britton. She followed up in his office and was set up for elective surgical repair. Presented to the hospital this morning had surgery this afternoon. She was not on any oxygen before hand had no chest pain or shortness of breath or any symptoms. Postoperatively she required oxygen 6 L initially and titrated down to 2-3. She says she has never been on oxygen in the past has no cardiac or pulmonary conditions. Denies any fevers chills. No coughing no recent sicknesses. She is not tachycardic however she is on beta-blockers. ABG with PaO2 of 58 and within normal limits CO2. Intraoperatively she received 2 units of IV fluids. She typically does not have any lower extremity edema. She has been sedentary since the fracture a few days ago on the . Her blood pressure is stable. 1/4 Doing fine this morning. She was just taken off oxygen given some Lasix earlier in put out 950 cc of fluid. Eyes any cough or shortness of breath. vital signs stable 1/5-patient doing well. No overnight events. Feeling a lot better. Ambulating with assistance. Discussed risk and benefits of oral anticoagulation including Coumadin and newer generation oral anticoagulant. Patient understands the risk and would like to initiate newer generation anticoagulant. Switch to Eliquis today. /-hypokalemia, on Eliquis, potassium replacement. No overnight events including fever chills nausea vomiting or concerns per staff. Resting comfortably. White count 6.4. Currently on room air. Possible discharge in 24 hours. - Constitutional Vitals: Vital Signs Temp Pulse Resp BP Pulse Ox 98.0 F 61 16 120/70 93 11/14/18 04:00 11/14/18 04:00 11/14/18 04:00 11/14/18 04:00 11/14/18 04:00 Period Temp Pulse Resp BP Sys/Handy Pulse Ox Last 24 Hr 97.1 F-98.5 F 52-61 14-20 95-120/60-70 93-95 Intake and Output 11/13/18 11/14/18 11/14/18 21:59 05:59 13:59 Intake Total 500 / 500 Output Total 450 / 1700 650 / 1700 Balance -450 / -1200 -150 / -1200 Weight 150 lb Intake & Output: Intake & Output 11/13/18 11/14/18 11/14/18 21:59 05:59 13:59 Intake Total 500 / 500 Output Total 450 / 1700 650 / 1700 Balance -450 / -1200 -150 / -1200 Weight 150 lb Intake: Oral 500 / 500 Output: Void Amount 450 / 1700 650 / 1700 Other: Meal Dinner Percent of Meal Consumed 75% Feeding Ability Independent Urine Appearance Clear Clear Urine Color Bright Yellow Bright Yellow General appearance: no acute distress Exam: Alert oriented No labored breathing Nondistended abdomen no lymphedema Medical - PN: Obj Da - Labs CBC & Chem 7: 11/14/18 04:11 11/14/18 04:11 Labs: Abnormal Lab Results 11/14/18 11/14/18 11/13/18 04:11 04:11 04:11 WBC RBC 3.40 L Hgb 10.5 L Hct 30.8 L MPV 7.0 L Lymphocytes % Sodium 132 L Potassium 3.0 L Chloride 93 L 92 L Glucose Osmolality Uric Acid 2.3 L GGT 37 H C-Reactive Protein NT-Pro-B Natriuret Pep Total Protein 5.7 L 5.6 L Albumin 3.1 L 2.9 L 11/13/18 11/12/18 11/12/18 04:11 03:50 03:50 WBC 11.7 H RBC 3.31 L 3.63 L Hgb 10.2 L 11.3 L Hct 29.9 L 32.8 L MPV 7.3 L 7.0 L Lymphocytes % 13 L Sodium Potassium Chloride Glucose Osmolality 268 L Uric Acid GGT C-Reactive Protein NT-Pro-B Natriuret Pep Total Protein Albumin 11/12/18 11/11/18 11/11/18 03:50 22:30 20:58 WBC RBC Hgb Hct MPV Lymphocytes % Sodium 127 L Potassium Chloride 91 L Glucose 134 H Osmolality Uric Acid 1.9 L GGT C-Reactive Protein 5.2 H NT-Pro-B Natriuret Pep 335.4 H Total Protein 5.7 L Albumin Meds: Medications Apixaban (Eliquis) 5 mg PO BID [facility] Last Admin: 11/13/18 20:35 Dose: 5 mg Documented by: Atenolol (Tenormin) 25 mg PO DAILY [facility] Last Admin: 11/13/18 08:50 Dose: Not Given Documented by: Bisacodyl (Dulcolax) 10 mg IA Q2-3DAYS PRN PRN Reason: Constipation Docusate Sodium (Colace) 100 mg PO BID [facility] Last Admin: 11/13/18 20:34 Dose: 100 mg Documented by: Escitalopram Oxalate (Lexapro) 10 mg PO DAILY [facility] Last Admin: 11/13/18 08:43 Dose: 10 mg Documented by: Hydrochlorothiazide (Oretic) 12.5 mg PO DAILY [facility] Last Admin: 11/13/18 08:43 Dose: 12.5 mg Documented by: Hydromorphone HCl (Dilaudid) 0.5 mg IV Q15MIN PRN PRN Reason: PAIN LEVEL > 6 Levothyroxine Sodium (Synthroid) 75 mcg PO ACB [facility] Last Admin: 11/13/18 06:23 Dose: 75 mcg Documented by: Lorazepam (Ativan) 0 mg IV Q4HP PRN PRN Reason: ANXIETY/SEDATION Losartan Potassium (Cozaar) 100 mg PO DAILY [facility] Last Admin: 11/13/18 08:50 Dose: Not Given Documented by: Magnesium Hydroxide (Milk Of Magnesia) 30 ml PO DAILYP PRN PRN Reason: Constipation Last Admin: 11/13/18 20:35 Dose: 30 ml Documented by: Morphine Sulfate (Morphine) 0 mg IV Q1HP PRN PRN Reason: PAIN LEVEL > 6 Ondansetron HCl (Zofran Odt) 4 mg SL Q6HP PRN PRN Reason: Nausea And Vomiting Oxycodone/Acetaminophen (Percocet 5-325 Mg) 0 tab PO Q4HP PRN PRN Reason: PAIN LEVEL 3-6 Last Admin: 11/13/18 21:51 Dose: 2 tab Documented by: Pramipexole Dihydrochloride (Mirapex) 0.5 mg PO HS [facility] Last Admin: 11/13/18 20:34 Dose: 0.5 mg Documented by: Sodium Biphosphate/Sodium Phosphate (Fleets Adult) 1 dose IA Q3-4DAYS PRN PRN Reason: Constipation Sodium Chloride (Saline Flush) 10 ml IV Q8 [facility] Last Admin: 11/13/18 22:09 Dose: 10 ml Documented by: Sodium Chloride (Saline Flush) 10 ml IV Q8 [facility] Last Admin: 11/13/18 22:09 Dose: 10 ml Documented by: Medical - PN: A/P - Time Spent With Patient Total time spent is greater than 50% in coordination of care (as documented) at patient's floor/unit and/or counseling patient: 15 - 24 minutes (1) Pulmonary embolism Status: Acute Assessment and plan: * Bilateral PE-continue anticoagulation Eliquis * Hypokalemia replace 60 mg potassium * Hypoxic respiratory failure secondary to above -resolved now on room air * History of hypertension continue thiazide/losartan/atenolol * Hypothyroidism on thyroxine * Anxiety disorder on escitalopram * DNR Plan * Continue anticoagulation * Discharge planning per orthopedics * Potassium replacement * Pre-existing medical condition management as above Current Visit: Yes Medical - PN: Qual - VTE Deep Vein Thrombosis/Pulmonary Embolism Present on Admission: Yes
[2018-11-14] MEDS: 0.9 % SODIUM CHLORIDE 10 ML SYRINGE IV SCH ×2 (06:32→07:08)
[2018-11-14 06:43] LABS: Band Neutrophils % 1 % (0-10); Eosinophils % (Manual) 1 % (0-7); Lymphocytes % 25 % (15-49); Monocytes % (Manual) 7 % (1-12); Platelet Estimate NORMAL (NORMAL); RBC Morphology NORMAL (NORMAL); Segmented Neutrophils % 66 % (38-78)
[2018-11-14] MEDS: LEVOTHYROXINE 75 MCG TABLET PO SCH (07:07)
[2018-11-14] MEDS: oxyCODONE/APAP 5/325MG TABLET PO PRN ×2 (07:07→11:20)
[2018-11-14] MEDS ORDERED: POTASSIUM CHLORIDE 20 MEQ/15 ML ML PT SCH (08:00)
--- NOTE | 2018-11-14 08:54 | Discharge Summary ---
Providers - Providers Patient information: Note initiated : 11/14/18 at 8:52 am Service Date, if different from initiated Date: [] Patient: Pari Reyes 68 y/o F admitted on 11/11/18 for Open Reduction Internal Fixation Left Trimalleolar. Chief Complaint: [] Discharge date: 11/14/18 Hospitalization Hospital course: Patient admitted after an ORIF of a trimalleolar fracture of the left ankle as she developed bilateral PE's. Her hospital stay has been uneventful otherwise. Discharge diagnosis: s/p ORIF trimalleollar ankle fracture of left ankle, bilateral PE of lungs Exam - Exam Clean and dry: Yes Weight bearing status: none Ortho Discharge Plan - General - Patient Instructions Diet: Regular Diet Activity: activity as tolerated, non weight bearing, other (Non weightbearing left ankle adjust brace for comfort but keep on) Dressing Care: Cover dressing in shower Patient Education: General Anesthesia (GEN), Open Reduction and Internal Fixation of an Ankle Fracture (DC) Additional Instructions: Continue Incentive Spirometer and deep breath/cough every 2 hrs while awake. Diet: Regular Diet Activity: other (Non weightbearing left ankle adjust brace for comfort but keep on) Dressing Care: Cover dressing in shower (keep ankle dry) - Follow Up Plan Follow Up Appointments: Bro Castellanos PA-C [Physician Leak Detector] - 11/17/18 Disposition: Home, Self-Care Prognosis: Good Rehab Potential: Good I certify that the patient requires SNF services: No Overall status at discharge: patient is progressing back to baseline Pending Studies Diet Regular Diet Start [id number] 12 [id number] Apixaban (Eliquis) 5 mg PO BID [facility] Last Admin: 11/13/18 20:35 Dose: 5 mg Documented by: VINCENT Atenolol (Tenormin) 25 mg PO DAILY [facility] Last Admin: 11/13/18 08:50 Dose: Not Given Documented by: CORA Docusate Sodium (Colace) 100 mg PO BID [facility] Last Admin: 11/13/18 20:34 Dose: 100 mg Documented by: VINCENT Escitalopram Oxalate (Lexapro) 10 mg PO DAILY [facility] Last Admin: 11/13/18 08:43 Dose: 10 mg Documented by: CORA Hydrochlorothiazide (Oretic) 12.5 mg PO DAILY [facility] Last Admin: 11/13/18 08:43 Dose: 12.5 mg Documented by: CORA Levothyroxine Sodium (Synthroid) 75 mcg PO ACB [facility] Last Admin: 11/14/18 07:07 Dose: 75 mcg Documented by: Admin: 11/13/18 06:23 Dose: 75 mcg Documented by: VINCENT Losartan Potassium (Cozaar) 100 mg PO DAILY [facility] Last Admin: 11/13/18 08:50 Dose: Not Given Documented by: CORA Magnesium Hydroxide (Milk Of Magnesia) 30 ml PO DAILYP PRN PRN Reason: Constipation Last Admin: 11/13/18 20:35 Dose: 30 ml Documented by: VINCENT Oxycodone/Acetaminophen (Percocet 5-325 Mg) 0 tab PO Q4HP PRN PRN Reason: PAIN LEVEL 3-6 Last Admin: 11/14/18 07:07 Dose: 2 tab Documented by: Admin: 11/13/18 21:51 Dose: 2 tab Documented by: Admin: 11/13/18 17:37 Dose: 2 tab Documented by: Admin: 11/13/18 13:33 Dose: 2 tab Documented by: Admin: 11/13/18 08:49 Dose: 2 tab Documented by: Admin: 11/13/18 04:34 Dose: 2 tab Documented by: Admin: 11/12/18 22:13 Dose: 2 tab Documented by: Admin: 11/12/18 17:33 Dose: 1 tab Documented by: Admin: 11/12/18 16:36 Dose: 1 tab Documented by: Admin: 11/12/18 13:50 Dose: 1 tab Documented by: [email or web address] Pramipexole Dihydrochloride (Mirapex) 0.5 mg PO HS [facility] Last Admin: 11/13/18 20:34 Dose: 0.5 mg Documented by: Admin: 11/12/18 22:11 Dose: 0.5 mg Documented by: VINCENT Sodium Chloride (Saline Flush) 10 ml IV Q8 [facility] Last Admin: 11/14/18 06:32 Dose: Not Given Documented by: Admin: 11/13/18 22:09 Dose: 10 ml Documented by: Admin: 11/13/18 13:34 Dose: 10 ml Documented by: Admin: 11/13/18 06:00 Dose: 10 ml Documented by: Admin: 11/12/18 22:23 Dose: 10 ml Documented by: Admin: 11/12/18 15:44 Dose: 10 ml Documented by: EDUARD Sodium Chloride (Saline Flush) 10 ml IV Q8 [facility] Last Admin: 11/14/18 07:08 Dose: 10 ml Documented by: Admin: 11/13/18 22:09 Dose: 10 ml Documented by: Admin: 11/13/18 12:10 Dose: Not Given Documented by: Admin: 11/13/18 06:00 Dose: 10 ml Documented by: Admin: 11/12/18 22:24 Dose: Not Given Documented by: Admin: 11/12/18 15:44 Dose: 10 ml Documented by: EDUARD Shift Summary 11/14/18 05:58 Shift Summary by Victor M Onofre&Ox4. KATIE wrap to LLE is CDI, walking boot on. NWB to LLE so one assist to pivot to BSC; reinforced teaching on using crutches and walking up stairs as practiced with PT. SBP in 90's to just above 100. BP meds held yesterday morning and recommend the same today. Pivot transfer to BSC with little to no assist. Gave 2 tab percocet x2 for pain this shift; held overnight d/t low BP's and bradycardia. HR reached 61 at 04:00 for first time in several days. Initialized on 11/14/18 05:58 - END OF NOTE
[2018-11-14] MEDS: APIXABAN 5 MG TABLET PO SCH (09:59)
[2018-11-14] MEDS: DOCUSATE SODIUM 100 MG CAPSULE PO SCH (09:59)
[2018-11-14] MEDS: ATENOLOL 50 MG TABLET PO SCH (09:59)
[2018-11-14] MEDS: LOSARTAN 50 MG TABLET PO SCH (09:59)
[2018-11-14] MEDS: ESCITALOPRAM 10 MG TABLET PO SCH (09:59)
[2018-11-14] MEDS: HYDROCHLOROTHIAZIDE 12.5 MG CAPSULE PO SCH (10:00)
== END 2018-11-14 11:35 | disposition home or self-care (01) | DRG 492 ==
LOC: SUR 09:43 → MEDSUR 20:35 → ICU 23:40 → MEDSUR 11-12 14:44
PROVIDERS: ADMIT Internal Medicine; ATTEND Orthopaedic Surgery Foot and Ankle Surgery